=== PATIENT | male | born 1995 | race Asian ===

== ENCOUNTER 2019-03-15 04:58 | Emergency (ER) | payer OTHER ==
[~2019-03-15] VITALS: Ht 167.6 cm; Wt 72.7 kg
[2019-03-15 05:49] LABS: HEMATOCRIT 43.4 % (42.0-52.0); HEMOGLOBIN 14.7 g/dl (13.5-17.5); MEAN CORPUSCULAR HEMOGLOBIN 31.4 pg (27.0-33.0); MEAN CORPUSCULAR HGB CONC 33.9 g/dl (32.0-36.5); MEAN CORPUSCULAR VOLUME 92.7 fl (80.0-96.0); PLATELET COUNT, AUTOMATED 341 10^3/uL (150-450); RED BLOOD COUNT 4.68 10^6/uL (4.30-6.10); WHITE BLOOD COUNT 9.8 10^3/uL (4.0-10.0)
[2019-03-15 06:22] LABS: ALBUMIN 4.1 GM/DL (3.2-5.2); ALT/SGPT 29 U/L (12-78); AMPHETAMINES LEVEL URINE NEGATIVE (NEGATIVE); BARBITURATES URINE NEGATIVE (NEGATIVE); BENZODIAZEPINES URINE NEGATIVE (NEGATIVE); BILIRUBIN,DIRECT < 0.1 MG/DL (0.0-0.2); BILIRUBIN,TOTAL 0.2 MG/DL (0.2-1.0); BLOOD UREA NITROGEN 19 MG/DL (7-18); CANNABINOIDS URINE NEGATIVE (NEGATIVE); CARBON DIOXIDE LEVEL 25 MEQ/L (21-32); CHLORIDE LEVEL 105 MEQ/L (98-107); COCAINE METABOLITE URINE NEGATIVE (NEGATIVE); ETHYL ALCOHOL (ETHANOL) 0.062 % (0.000-0.010); GLOMERULAR FILTRATION RATE > 60.0 (>60); GLUCOSE, FASTING 96 MG/DL (70-100); METHADONE URINE NEGATIVE (NEGATIVE); OPIATES URINE NEGATIVE (NEGATIVE); PHENCYCLIDINE URINE NEGATIVE (NEGATIVE); SODIUM LEVEL 139 MEQ/L (136-145); TOTAL PROTEIN 7.6 GM/DL (6.4-8.2)
[2019-03-15 06:23] LABS: ACETAMINOPHEN LEVEL < 2.0 UG/ML (10.0-30.0)
[2019-03-15] MEDS ORDERED: FLUO20CA19 (08:40)
--- NOTE | 2019-03-15 15:15 | ECGEPIP ---
[facility] - ED Test Date: 2019-03-15 Pat Name: CHRIS CASTILLO Department: Room: - Gender: Male Watch [employer]: VERNON : 1995 Requested By: Jeanette Lunsford Order Number: [id number] Reading MD: Jeanette Lunsford Measurements Intervals [place] Rate: 94 P: 60 ND: 166 QRS: 83 QRSD: 100 T: 37 QT: 343 QTc: 430 Interpretive Statements SINUS RHYTHM POSSIBLE RIGHT VENTRICULAR CONDUCTION DELAY ST ELEVATION, PROBABLY EARLY REPOLARIZATION, CLINICAL CORRELATION NO PRIOR Electronically Signed on 03-15-2019 15:14:31 EST by Jeanette Lunsford
[2019-03-15 16:35] VITALS: BP 138/78
== END 2019-03-15 16:35 | disposition short-term general hospital (02) ==
LOC: M ED 04:58
DX: R45.851 Suicidal ideations (principal); Z91.5 Personal history of self-harm
CPT/HCPCS: 36415; 80048; 80076; 80307; 84443; 85027; 93005; 99284; G0480

== ENCOUNTER 2019-06-02 22:23 | Inpatient (IN) | payer OTHER ==
[~2019-06-02] VITALS: Ht 167.6 cm; Wt 72.7 kg
[~2019-06-02 22:23] MED LIST: FLUO20CA22
[2019-06-02] MEDS ORDERED: FLUO40CA PO (23:17)
[2019-06-02 23:33] LABS: HEMATOCRIT 42.8 % (42.0-52.0); HEMOGLOBIN 14.6 g/dl (13.5-17.5); MEAN CORPUSCULAR HEMOGLOBIN 31.9 pg (27.0-33.0); MEAN CORPUSCULAR HGB CONC 34.1 g/dl (32.0-36.5); MEAN CORPUSCULAR VOLUME 93.7 fl (80.0-96.0); PLATELET COUNT, AUTOMATED 363 10^3/uL (150-450); RED BLOOD COUNT 4.57 10^6/uL (4.30-6.10)
[2019-06-02 23:50] LABS: AMPHETAMINES LEVEL URINE NEGATIVE (NEGATIVE); BARBITURATES URINE NEGATIVE (NEGATIVE); BENZODIAZEPINES URINE NEGATIVE (NEGATIVE); CANNABINOIDS URINE NEGATIVE (NEGATIVE); COCAINE METABOLITE URINE NEGATIVE (NEGATIVE); METHADONE URINE NEGATIVE (NEGATIVE); OPIATES URINE NEGATIVE (NEGATIVE); PHENCYCLIDINE URINE NEGATIVE (NEGATIVE)
[2019-06-03 00:21] LABS: ACETAMINOPHEN LEVEL < 2.0 UG/ML (10.0-30.0); ALT/SGPT 21 U/L (12-78); BILIRUBIN,DIRECT < 0.1 MG/DL (0.0-0.2); BILIRUBIN,TOTAL 0.2 MG/DL (0.2-1.0); BLOOD UREA NITROGEN 15 MG/DL (7-18); CALCIUM LEVEL 8.6 MG/DL (8.5-10.1); CARBON DIOXIDE LEVEL 26 MEQ/L (21-32); CHLORIDE LEVEL 108 MEQ/L (98-107); CREATININE FOR GFR 0.88 MG/DL (0.70-1.30); ETHYL ALCOHOL (ETHANOL) 0.064 % (0.000-0.010); GLOMERULAR FILTRATION RATE > 60.0 (>60); GLUCOSE, FASTING 103 MG/DL (70-100); POTASSIUM SERUM 3.7 MEQ/L (3.5-5.1); SALICYLATE LEVEL < 1.7 MG/DL (5.0-30.0); SODIUM LEVEL 142 MEQ/L (136-145); TOTAL PROTEIN 7.6 GM/DL (6.4-8.2)
[2019-06-03] MEDS ORDERED: ACETAMINOPHEN TAB 650MG DOSE (2X325MG) PO PRN (05:15)
[2019-06-03] MEDS ORDERED: traZODone 50 MG TAB PO PRN (05:15)
[2019-06-03] MEDS ORDERED: MOM 30ML SUSPENSION UDC PO PRN (05:15)
[2019-06-03] MEDS ORDERED: MAALOX 30 ML SUSP *UDC PO PRN (05:15)
[2019-06-03 08:33] VITALS: BP 141/78
[2019-06-03 16:00] VITALS: BP 108/56
[2019-06-03] MEDS ORDERED: ARIPiprazole 2 MG TAB PO SCH (21:00)
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
--- NOTE | 2019-06-03 21:33 | HPEPDOC ---
General Date of Admission Jun 03, 2019 at 05:01 Date of Service: Jun 03, 2019 Chief Complaint The patient is a 23-year-old male admitted with a reason for visit of Unspecified Depressive Disorder. 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 I am seeing the patient for medical history and physical. No medical complaints today. Home Medications Scheduled Fluoxetine Hcl (Fluoxetine HCl) 40 Mg Capsule, 80 MG PO DAILY, (Reported) Allergies Coded Allergies: No Known Allergies (Unverified , 03/15/19) Past Medical History Medical History depression , cutting, suicidal attempts in the past Surgical History none Family History patient is adapted so does not know any family history Social History * Smoker: current smoker, other (vape) Alcohol: heavy Drugs: denies A-FIB/CHADSVASC A-FIB History Current/History of A-Fib/PAF?: No Review of Systems Constitutional: Denies: Chills, Fever, Night Sweats Eyes: Denies: Pain, Vision change ENT: Denies: Head Aches, Ear Pain, Dysphagia Skin: Denies: Rash, Lesions, Breakdown Pulmonary: Denies: Dyspnea, Cough Cardiovascular: Denies: Chest Pain, Palpitations, Orthopnea, Paroxysmal Noc. Dyspnea, Lt Headedness Gastrointestinal: Denies: Nausea, Vomiting, Abdominal Pain, Diarrhea Genitourinary: Denies: Dysuria, Frequency, Incontinence, Retention Hematologic: Denies: Bruising, Bleeding Excessively Musculoskeletal: Denies: Neck Pain, Back Pain, Joint Pain, Muscle Pain, Spasms Physical Examination General Exam: Positive: Alert, No Acute Distress Eye Exam: Positive: PERRLA, Conjunctiva & lids normal, Other Eye Symptoms (the axis of the eyes do not match, eyes lids are puffy); Negative: Sclera icteric ENT Exam: Positive: Atraumatic, Mucous membr. moist/pink, Pharynx Normal Neck Exam: Positive: Supple; Negative: JVD, thyromegaly Chest Exam: Positive: Clear to auscultation, Normal air movement Heart Exam: Positive: Rate Normal, Regular Rhythm, Normal S1, Normal S2; Negative: Murmurs, Rubs Abdomen Exam: Positive: Normal bowel sounds, Soft; Negative: Tenderness, Hepatospenomegaly Extremity Exam: Positive: Normal pulses; Negative: Clubbing, Cyanosis, Edema Skin Exam: Positive: Nl turgor and temperature; Negative: Breakdown, Lesion Neuro Exam: Positive: Normal Gait, Normal Speech, Cranial Nerves 3-12 NL, Reflexes 2+ Vital Signs Vital Signs Date Time Temp Pulse Resp B/P (MAP) Pulse Ox O2 Delivery O2 Flow Rate FiO2 06/03/19 08:33 98.1 81 18 141/78 (99) 06/03/19 08:06 99 Room Air Laboratory Data Labs 24H Laboratory Tests 2 06/02/19 23:14: Nucleated Red Blood Cells % (auto) 0.0, Anion Gap 8, Glomerular Filtration Rate > 60.0, Calcium Level 8.6, Total Bilirubin 0.2, Direct Bilirubin < 0.1, Aspartate Amino Transf (AST/SGOT) 14, Alanine Aminotransferase (ALT/SGPT) 21, Alkaline Phosphatase 69, Total Protein 7.6, Albumin 4.0, Albumin/Globulin Ratio 1.11, Thyroid Stimulating Hormone (TSH) 2.260, Salicylates Level < 1.7L, Urine Opiates Screen NEGATIVE, Urine Methadone Screen NEGATIVE, Acetaminophen Level < 2.0L, Urine Barbiturates Screen NEGATIVE, Urine Phencyclidine Screen NEGATIVE, Urine Amphetamines Screen NEGATIVE, Urine Benzodiazepines Screen NEGATIVE, Urine Cocaine Metabolite Screen NEGATIVE, Urine Cannabinoids Screen NEGATIVE, Ethyl Alcohol Level 0.064H CBC/BMP Laboratory Tests 06/02/19 23:14 Assessment/Plan 23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 I am seeing the patient for medical history and physical. Psychiatric issues as per psych. No active medical issues will sign off. Plan / VTE VTE Prophylaxis Ordered?: No DAVIN PAGE MD Jun 03, 2019 14:28
[2019-06-04 06:57] VITALS: BP 126/65
--- NOTE | 2019-06-04 10:03 | MHIPNPDOC ---
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 Interval History Narrative: The patient is met within the group setting. He reports that he is not interested in long-term treatment at this time. Affective: The patient reports being at baseline levels of low mood, loss of interest and focus problems, reports "this is my normal." Psychotic: Denies any symptoms at this time. Anxiety: Reports worries about his current situation. Eating and sleeping behaviors: Some disruption with difficulty sleeping. Group Attendance: Frequent. Medication Side effects: See ROS below Behavioral problems/significant events overnight: None. Staff Report: Generally friendly and amenable to intervention. Review Of Systems General: Denies fever or appetite changes Cardiovascular: Denies Chest pain or palpations GI: Denies Nausea, vomiting, or bowel changes Respiratory: Denies shortness of breath or cough Neuro: Denies dizziness, tremors Derm: Denies any rashes or pruritus : Denies any dysuria or urinary problems MSK: Denies any muscle tightness or stiffness HEENT: Denies any vision changes or headaches Psychotherapy None on this visit. Vital Signs Reviewed. Mental Status Examination General: Well dressed with good hygiene Speech: Spontaneous and fluid Thought processes: Linear and logical MSK: Smooth and coordinated gait, no signs of tremors or involuntary orofacial movements Thought content: Some mild hopelessness Abstract reasoning, and computation: Intact Description of associations: Intact Description of abnormal or psychotic thoughts: Denies any suicidal or homicidal ideation. Denies any auditory or visual hallucinations. Does not appear to be responding to internal stimuli. Does not appear to be endorsing any bizarre or paranoid ideation. Judgment: fair Insight: fair Orientation: Alert and orientated 3 Cognition: Grossly normal Recent and remote memory: Intact Attention span and concentration: Intact Fund of knowledge: Adequate Mood: "okay" Affect: Dysthymic although reactive Diagnoses Major depressive disorder, recurrent, moderate to severe. Alcohol use disorder, moderate. Assessment and Plan MDD: Continue Prozac. We will increase Abilify to 5 mg for augmentation, discussed rationale with patient. Alcohol use disorder, continue CIWA Disposition Patient will need a further inpatient admission for titration of his medications, his resistant depression will likely need complex medication titration in order to avoid further re-admissions. Time Spent 15 minutes. Vital Signs Vital Signs Date Time Temp Pulse Resp B/P (MAP) Pulse Ox O2 Delivery O2 Flow Rate FiO2 06/04/19 06:57 98.0 65 14 126/65 (85) 06/03/19 08:06 99 Room Air Current Medications Current Medications Medications (Trade) Dose Ordered Sig/Jaz Route PRN Reason Start Time Stop Time Status Last Admin Dose Admin Acetaminophen (Tylenol Tab) 650 mg Q6HP PRN PO HEADACHE or DISCOMFORT 06/03/19 05:15 Al Hydrox/Mg Hydrox/Simethicone (Mylanta) 30 ml Q4HP PRN PO HEARTBURN/INDIGESTION 06/03/19 05:15 Aripiprazole (AbiLIFY) 2 mg QHS PO 06/03/19 21:00 06/03/19 20:08 Fluoxetine HCl (PROzac) 80 mg QAM PO 06/04/19 09:00 Home Med (Med Rec Complete!) ASDIRECTED XX 06/02/19 23:30 06/02/19 23:19 DC Magnesium Hydroxide (Milk Of Magnesia) 30 ml DAILYPRN PRN PO CONSTIPATION 06/03/19 05:15 Trazodone HCl (Desyrel) 50 mg QHSP PRN PO INSOMNIA 06/03/19 05:15 Allergies Coded Allergies: No Known Allergies (Unverified , 03/15/19) DANGELO ROBLERO DO Jun 04, 2019 10:03
[2019-06-04] MEDS: FLUoxetine 20 MG CAP PO SCH (10:36)
[2019-06-04] MEDS ORDERED: ABIL1TAB11 PO (12:41)
[2019-06-04] MEDS ORDERED: FLUO40CA PO (12:41)
[2019-06-04 16:00] VITALS: BP 154/76
[2019-06-05 06:40] VITALS: BP 125/66
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
[2019-06-05] MEDS: FLUoxetine 20 MG CAP PO SCH (10:37)
[2019-06-05 18:05] VITALS: BP 121/62
[2019-06-06 06:30] VITALS: BP 141/60
--- NOTE | 2019-06-06 09:14 | MHDSPDOC ---
[facility] Discharge Summary Discharge Summary DATE OF ADMISSION: Jun 03, 2019 at 05:01 DATE OF DISCHARGE: 06/06/19 Ignacio Walden Discharge Ignacio Walden Select Gender MRN: N/A Date of : MM/DD/YYYY Date of Service: 06/06/2019 Diagnoses Major depressive disorder, recurrent, moderate to severe, in partial remission. Alcohol use disorder, moderate. 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 Consultants Involved Hospitalist/PCP screening Treatment and Progress On The Unit The patient was admitted to the inpatient mental health unit with a decompensated depression. He was subsequently restarted on his max dose Prozac, at 80 mg. Subsequently, this was augmented with 2 mg of Abilify, the patient tolerated it well and it was increased to 5 mg for depression augmentation. The patient resolved quite well and became more euthymic. It is unclear as to how much his alcohol use prior to his versus major depressive disorder. He does report some fatigue continuing, but improving low mood. The patient did well, attended groups and was cooperative with the treatment team. After observation and medication titration, he had requested discharge. His chain of command had proposed him a voluntary admission to long-term, after a discussion with him and his chain of command, the patient elected against long-term. 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 On the day of discharge, the patient did not meet involuntary criteria, as he had been denying suicidal and homicidal ideation for the last several days, reported improved depression and had a normal mental status exam on my final assessment as well as demonstrating good and fair insight into his situation. The patient declined a further voluntary admission and thus must be discharged in good sanjana. Mental Status Examination General: Well dressed with good hygiene Speech: Spontaneous and fluid Thought processes: Linear and logical MSK: Smooth and coordinated gait, no signs of tremors or involuntary orofacial movements Thought content: Future orientated Abstract reasoning, and computation: Intact Description of associations: Intact Description of abnormal or psychotic thoughts: Denies any suicidal or homicidal ideation. Denies any auditory or visual hallucinations. Does not appear to be responding to internal stimuli. Does not appear to be endorsing any bizarre or paranoid ideation. Judgment: fair Insight: fair Orientation: Alert and orientated 3 Cognition: Grossly normal Recent and remote memory: Intact Attention span and concentration: Intact Fund of knowledge: Adequate Mood: "okay" Affect: Euthymic with a full range Follow Up The social work team worked during the predischarge meeting in order to evaluate for further issues of lethality address them fully before discharge. They worked on safety planning with the patient's family members in order to ensure that the patient will have a safe and effective discharge. Time Spent The amount of time spent in the coordination of care for this patient was approximately 50 minutes. Vital Signs/I&Os Vital Signs Date Time Temp Pulse Resp B/P (MAP) Pulse Ox O2 Delivery O2 Flow Rate FiO2 06/06/19 06:30 97.6 60 16 141/60 (87) 06/03/19 08:06 99 Room Air Medications Scheduled Aripiprazole (Abilify) 5 Mg Tablet, 5 MG PO QHS for mood for 7 Days, #7 Fluoxetine Hcl (Fluoxetine HCl) 40 Mg Capsule, 80 MG PO DAILY for mood for 7 Days, #14 Allergies Coded Allergies: No Known Allergies (Unverified , 03/15/19) DANGELO ROBLERO DO Jun 06, 2019 09:14
[2019-06-06] MEDS: FLUoxetine 20 MG CAP PO SCH (09:22)
== END 2019-06-06 09:26 | disposition home or self-care (01) | DRG 885 ==
LOC: M ED 22:23 → M ED INP 06-03 05:01 → M PSY 06-03 08:33
PROVIDERS: ADMIT Psychiatry & Neurology Psychiatry; ATTEND Psychiatry & Neurology Psychiatry
DX: F33.1 Major depressive disorder, recurrent, moderate (principal); F10.20 Alcohol dependence, uncomplicated; Z91.5 Personal history of self-harm; Z79.899 Other long term (current) drug therapy; F90.9 Attention-deficit hyperactivity disorder, unspecified type; F17.290 Nicotine dependence, other tobacco product, uncomplicated

== ENCOUNTER 2019-09-17 00:15 | Emergency (ER) | payer OTHER ==
[~2019-09-17] VITALS: Ht 167.6 cm; Wt 77.3 kg
[~2019-09-17 00:15] MED LIST changes: +ABIL1TAB11 PO; +FLUO40CA PO
[2019-09-17 00:50] LABS: HEMATOCRIT 44.6 % (42.0-52.0); MEAN CORPUSCULAR HEMOGLOBIN 30.6 pg (27.0-33.0); MEAN CORPUSCULAR HGB CONC 33.6 g/dl (32.0-36.5); PLATELET COUNT, AUTOMATED 334 10^3/uL (150-450); WHITE BLOOD COUNT 6.6 10^3/uL (4.0-10.0)
[2019-09-17 01:28] LABS: AMPHETAMINES LEVEL URINE NEGATIVE (NEGATIVE); BARBITURATES URINE NEGATIVE (NEGATIVE); BENZODIAZEPINES URINE NEGATIVE (NEGATIVE); CANNABINOIDS URINE NEGATIVE (NEGATIVE); COCAINE METABOLITE URINE NEGATIVE (NEGATIVE); METHADONE URINE NEGATIVE (NEGATIVE); OPIATES URINE NEGATIVE (NEGATIVE); PHENCYCLIDINE URINE NEGATIVE (NEGATIVE)
[2019-09-17 01:50] LABS: ACETAMINOPHEN LEVEL < 2.0 UG/ML (10.0-30.0); ALT/SGPT 23 U/L (12-78); BILIRUBIN,DIRECT < 0.1 MG/DL (0.0-0.2); BILIRUBIN,TOTAL 0.2 MG/DL (0.2-1.0); BLOOD UREA NITROGEN 16 MG/DL (7-18); CALCIUM LEVEL 9.2 MG/DL (8.5-10.1); CARBON DIOXIDE LEVEL 26 MEQ/L (21-32); CHLORIDE LEVEL 109 MEQ/L (98-107); CREATININE FOR GFR 0.87 MG/DL (0.70-1.30); ETHYL ALCOHOL (ETHANOL) 0.172 % (0.000-0.010); GLOMERULAR FILTRATION RATE > 60.0 (>60); GLUCOSE, FASTING 89 MG/DL (70-100); SALICYLATE LEVEL < 1.7 MG/DL (5.0-30.0); SODIUM LEVEL 141 MEQ/L (136-145); TOTAL PROTEIN 7.4 GM/DL (6.4-8.2)
--- NOTE | 2019-09-17 07:40 | ECGEPIP ---
[facility] - ED Test Date: 2019-09-17 Pat Name: CHRIS CASTILLO Department: Room: - Gender: Male Pe[employer] Grader: ef : 1995 Requested By: JOE Clark Order Number: [id number] Reading MD: Matthieu Gusman Measurements Intervals [place] Rate: 68 P: 27 MD: 171 QRS: 83 QRSD: 114 T: 33 QT: 401 QTc: 428 Interpretive Statements SINUS RHYTHM INCOMPLETE RIGHT BUNDLE BRANCH BLOCK BENIGN EARLY REPOLARIZATION SIMILAR TO 03/15/19 Electronically Signed on 09-17-2019 7:40:09 EDT by Matthieu Gusman
[2019-09-17 08:43] VITALS: BP 115/60
== END 2019-09-17 08:45 ==
LOC: EDBD 00:15 → M ED 00:15
DX: R45.851 Suicidal ideations (principal); F33.9 Major depressive disorder, recurrent, unspecified; Z79.899 Other long term (current) drug therapy; Z77.098 Contact with and (suspected) exposure to other hazardous, chiefly nonmedicinal, chemicals
CPT/HCPCS: 36415; 80048; 80076; 80307; 84443; 85027; 93005; 99284; G0480